=== PATIENT | male | born 1945 | race Caucasian/White ===

== ENCOUNTER 2023-06-26 13:44 | Inpatient (IN) | payer MEDICARE, OTHER ==
[~2023-06-26] VITALS: Ht 167.6 cm; Wt 59.9 kg
[2023-06-26 14:14] LABS: BASOPHILS # (AUTO) 0.1 K/uL (0.0-0.2); BASOPHILS % (AUTO) 1.1 % (0.0-2.0); EOSINOPHILS # (AUTO) 0.1 K/uL (0.0-0.7); EOSINOPHILS % (AUTO) 1.6 % (0.0-6.0); HEMATOCRIT 47 % (39-51); HEMOGLOBIN 15.8 g/dL (13.5-17.5); LYMPHOCYTES # (AUTO) 1.7 K/uL (0.8-4.8); LYMPHOCYTES % (AUTO) 26.1 % (20.0-44.0); MEAN CORPUSCULAR HEMOGLOBIN 31 PG (26.0-33.0); MEAN CORPUSCULAR HGB CONC 34 g/dl (31.0-36.0); MEAN CORPUSCULAR VOLUME 91 fL (80-96); MONOCYTES # (AUTO) 0.5 K/uL (0.1-1.30); MONOCYTES % (AUTO) 7.9 % (2.0-12.0); NEUTROPHILS # (AUTO) 4.1 K/uL (1.8-8.9); NEUTROPHILS % (AUTO) 63.3 % (43.0-81.0); PLATELET COUNT (AUTO) 208 K/uL (150-450); RED BLOOD CELL COUNT(AUTO) 5.17 MIL/uL (4.5-6.0); RED CELL DISTRIBUTION WIDTH 13.9 % (11.5-15.0); WHITE BLOOD COUNT (AUTO) 6.5 K/uL (4.3-11.0)
[2023-06-26 14:37] LABS: ALANINE AMINOTRANSFERASE 35 U/L (12-78); ALBUMIN 3.4 g/dL (3.4-5.0); ALKALINE PHOSPHATASE 70 U/L (46-116); ASPARTATE AMINOTRANSFERASE 20 U/L (15-37); BILIRUBIN,DIRECT 0.1 mg/dL (0.0-0.2); BILIRUBIN,TOTAL 0.5 mg/dL (0.2-1.0); CALCIUM, SERUM 8.8 mg/dL (8.5-10.1); CARBON DIOXIDE 26 mmol/L (21-32); CHLORIDE 103 mmol/L (98-107); CREATININE 0.8 mg/dL (0.6-1.3); GLUCOSE 117 mg/dL (74-106); LIPASE 30 U/L (16-77); NT-PRO BNP 110 pg/mL (0-125); POTASSIUM 3.4 mmol/L (3.5-5.1); SODIUM SERUM 136 mmol/L (136-145); TOTAL PROTEIN, SERUM 7.1 g/dL (6.4-8.2); UREA NITROGEN, BLOOD 9 mg/dL (7-18)
[2023-06-26] MEDS ORDERED: POTA10TA10 PO (14:37)
[2023-06-26] MEDS ORDERED: MELA5TAB PO (14:37)
[2023-06-26] MEDS ORDERED: DONE10TA44 PO (14:37)
[2023-06-26] MEDS ORDERED: SENN-261 PO (14:37)
[2023-06-26] MEDS ORDERED: MAGN400T26 PO (14:37)
[2023-06-26] MEDS ORDERED: DIVA250T PO (14:37)
[2023-06-26] MEDS ORDERED: CRAN250C PO (14:37)
[2023-06-26] MEDS ORDERED: GLUC1KIT IM (14:37)
[2023-06-26] MEDS ORDERED: ACET-868 PO (14:37)
[2023-06-26] MEDS ORDERED: AMLO-213 PO (14:37)
[2023-06-26 15:05] LABS: APPEARANCE,URINE CLEAR (CLEAR); BILIRUBIN,URINE NEGATIVE (NEGATIVE); BLOOD, URINE NEGATIVE Ery/uL (NEGATIVE); COLOR,URINE YELLOW (YELLOW); KETONES,URINE 1+ mg/dL (NEGATIVE); LEUKOCYTE ESTERASE ,URINE NEGATIVE (NEGATIVE); NITRITE, URINE NEGATIVE (NEGATIVE); PROTEIN,URINE NEGATIVE (NEGATIVE); UGLUCOSE NEGATIVE (NEGATIVE); UROBILINOGEN,URINE 0.2 EU/dL (0.2)
[2023-06-26 15:13] LABS: RBC,URINE 0-2 /HPF (0-2); WBC,URINE 0-2 /HPF (0-3)
[2023-06-26 15:14] LABS: ADD URINE CULTURE NO; BACTERIA,URINE None seen /HPF (None Seen)
[2023-06-26] MEDS ORDERED: ENOXAPARIN SODIUM 40 MG/0.4 ML DISP.SYRIN SQ SCH (16:00)
[2023-06-26] MEDS ORDERED: ACETAMINOPHEN 325 MG TABLET PO PRN (16:00)
[2023-06-26] MEDS ORDERED: POTASSIUM CHLORIDE 20 MEQ TAB.PRT.SR PO ONE ×2 (16:00)
[2023-06-26] MEDS ORDERED: ONDANSETRON HCL/PF 4 MG/2 ML VIAL IVP PRN (16:00)
[2023-06-26 17:00] VITALS: BP 137/80; TEMP 97.7; O2SAT 97
[2023-06-26] MEDS ORDERED: QUETIAPINE FUMARATE 25 MG TABLET PO ONE (18:00)
[2023-06-26 20:00] VITALS: BP 135/69; TEMP 97.5; O2SAT 98
[2023-06-26] MEDS: IV NS 0.9% 1,000 ML IV PRN (21:00)
[2023-06-26] MEDS ORDERED: DIVALPROEX SODIUM 125 MG CAP.SPRINK PO SCH (21:00)
[2023-06-26] MEDS: ENOXAPARIN SODIUM 40 MG/0.4 ML DISP.SYRIN SQ SCH (21:15)
[2023-06-26] MEDS: DIVALPROEX SODIUM 125 MG CAP.SPRINK PO SCH (21:16)
[2023-06-26] MEDS: SENNOSIDES 8.6 MG TABLET PO SCH (21:16)
[2023-06-26] MEDS ORDERED: SENNOSIDES 8.6 MG TABLET PO SCH (22:00)
[2023-06-27 04:00] VITALS: BP 126/62; TEMP 97.7; O2SAT 98
[2023-06-27 08:00] VITALS: BP 149/69; TEMP 97.9; O2SAT 98
[2023-06-27] MEDS ORDERED: DONEPEZIL 5 MG TABLET PO SCH (09:00)
[2023-06-27] MEDS ORDERED: MAGNESIUM OXIDE 400 MG TABLET PO SCH ×2 (09:00)
[2023-06-27] MEDS ORDERED: POTASSIUM CHLORIDE 10 MEQ TABLET.SA PO SCH ×2 (09:00)
[2023-06-27] MEDS: DIVALPROEX SODIUM 125 MG CAP.SPRINK PO SCH ×2 (09:04→21:29)
[2023-06-27] MEDS: AMLODIPINE BESYLATE 10 MG TABLET PO SCH (09:05)
[2023-06-27] MEDS: DONEPEZIL 5 MG TABLET PO SCH (09:05)
[2023-06-27 16:00] VITALS: BP 135/75; TEMP 98; O2SAT 98
[2023-06-27 20:00] VITALS: BP 130/86; TEMP 97.5; O2SAT 98
[2023-06-27] MEDS: ENOXAPARIN SODIUM 40 MG/0.4 ML DISP.SYRIN SQ SCH (21:29)
[2023-06-27] MEDS: SENNOSIDES 8.6 MG TABLET PO SCH (21:29)
[2023-06-28] MEDS: IV NS 0.9% 1,000 ML IV PRN ×2 (00:39→16:39)
[2023-06-28 04:00] VITALS: BP 121/61; TEMP 97.9; O2SAT 97
[2023-06-28 08:00] VITALS: BP 133/61; TEMP 97.9; O2SAT 97
[2023-06-28] MEDS: DONEPEZIL 5 MG TABLET PO SCH (09:06)
[2023-06-28] MEDS: DIVALPROEX SODIUM 125 MG CAP.SPRINK PO SCH ×2 (09:06→21:04)
[2023-06-28] MEDS: AMLODIPINE BESYLATE 10 MG TABLET PO SCH (09:07)
[2023-06-28 16:00] VITALS: BP 130/71; TEMP 98.4; O2SAT 97
[2023-06-28 20:00] VITALS: BP 141/75; TEMP 98.1; O2SAT 98
[2023-06-28] MEDS: SENNOSIDES 8.6 MG TABLET PO SCH (21:04)
[2023-06-28] MEDS: ENOXAPARIN SODIUM 40 MG/0.4 ML DISP.SYRIN SQ SCH (21:06)
[2023-06-29 04:00] VITALS: BP 135/74; TEMP 98.2; O2SAT 98
[2023-06-29 08:00] VITALS: BP 127/55; TEMP 98; O2SAT 99
[2023-06-29] MEDS: AMLODIPINE BESYLATE 10 MG TABLET PO SCH (08:41)
[2023-06-29] MEDS: DONEPEZIL 5 MG TABLET PO SCH (08:41)
[2023-06-29] MEDS: DIVALPROEX SODIUM 125 MG CAP.SPRINK PO SCH (08:41)
[2023-06-29 11:30] VITALS: BP 130/70; TEMP 98.2; O2SAT 99
== END 2023-06-29 13:53 | DRG 641 ==
LOC: ER 13:50 → TELE1 16:52 → MEDSG1 18:45
PROVIDERS: ADMIT Nurse Practitioner Acute Care; ATTEND Nurse Practitioner Acute Care
DX: R62.7 Adult failure to thrive (principal); F05 Delirium due to known physiological condition; F03.90 Unspecified dementia, unspecified severity, without behavioral disturbance, psychotic disturbance, mood disturbance, and anxiety; I25.10 Atherosclerotic heart disease of native coronary artery without angina pectoris; N40.0 Benign prostatic hyperplasia without lower urinary tract symptoms; E87.6 Hypokalemia; I10 Essential (primary) hypertension; J44.9 Chronic obstructive pulmonary disease, unspecified; Z20.822 Contact with and (suspected) exposure to COVID-19; R53.1 Weakness; Z68.21 Body mass index [BMI] 21.0-21.9, adult
CPT/HCPCS: 36415; 71045-TC; 80048-TC; 80076-TC; 81001; 82962-TC; 83690-TC; 83735-TC; 83880; 84443-TC; 84484-TC; 85025-TC; 87086-TC; 97110-TC; 97116-TC; 97530-TC; A4223; C9803; G0378; J1650; J7030